=== PATIENT | female | born 1950 | race Two or more races ===

== ENCOUNTER → 2016-12-10 | Outpatient (CLI) | payer OTHER ==
[~2016-12-10] MED LIST: REGADENOSON 0.4 MG/5 ML DISP.SYRIN. IV ONE
--- NOTE | 2016-12-10 14:56 | RAD ---
APPROVED REPORT Test Type: Pharmacological Stress Nurse/Tech: freya mendoza Test Indications: DYSPNEA Cardiac History: NONES STATED, SEE EHR Medications: SEE EHR Medical History: DIABETES, SEE EHR Resting ECG: SR Resting Heart Rate: 67 bpm Resting Blood Pressure: 131/59mmHg Pretest Chest Pain: No chest pain Nurse/Tech Notes LUNG SOUNDS CLEAR, S1S2 WNL. Consent: The procedure was explained to the patient in lay terms. Informed consent was witnessed. Thierry eout was entered into [employer]. History and Stress Test performed by RT Debby (R) (N) Pharm. Details Pharmacologic stress testing was performed using 0.4mg per 5ml of regadenoson given intravenously ove r 7-10 seconds. Stress Symptoms HEADACHE POST EXERCISE Reason for Termination: Infusion complete Max HR: 111 bpm Max Blood Pressure: 163/65mmHg Chest Pain: No. Arrhythmia: No. ST Change: No. INTERPRETATION Stress EKG Conclusion: Baseline EKG showed sinus rhythm. Non diagnostic changes at peak stress. No arrhythmias. Imaging Protocol IMAGE PROTOCOL: Rest Tc-99m/stress Tc-99m 1 day Rest: Stress: Viability: Radiopharm.Tc99m PwrpeagbcHz72b Sestamibi Isip41yEq 35mCi Duration 15min. 10min. Img Date 12/10/2016 12/10/2016 Inj-Img Onvv55mzm. 60min. Rest Admin Site:IV - Left AntecubitalAdministrator:RT Maritza (R)(N) Stress Admin Site: IV - Left AntecubitalAdministrator: RT Maritza (R)(N) STRESS DATA End Diast. Vol.58.0mlAv. Heart Rate83.0bpm End Syst. Vol.14.0mlCO Index BSA0.0L/min Myocardial Mass99.0gEject. Ndklyaxb92.0% Stress Rates Pk. Fill Rate3.06EDV/secLVtime Pk. Fill 161.07msec Pk. Empty Rate5.32ESV/secLVtime Pk. Jxrpd911.89msec 05/20 Pk. Fill0.95EDV/sec Stress Scores Regional WT1.00Summed WT3.00 Regional WM0.00Summed WM1.00 Study quality was good. Left Ventricular size was Normal at Rest and Stress. Lung uptake was Normal. Left Ventricular ejection fraction is 76%. The rest and stress images show normal perfusion, normal contraction and thickening. LV Perf. Quant 17 Seg. SSS0.00 17 Seg. SRS1.00 17 Seg. SDS0.00 Stress Defect Extent (% LAD)0.00Rest Defect Extent (% LAD)0.00Rev. Defect Extent (% LAD)0.00 Stress Defect Extent (% LCX) 0.00Rest Defect Extent (% LCX)0.00Rev. Defect Extent (% LCX)0.00 Stress Defect Extent (% RCA)0.00Rest Defect Extent (% RCA)0.00Rev. Defect Extent (% RCA)0.00 Stress Defect Extent (% FATEMEH)0.00Rest Defect Extent (% FATEMEH)0.00Rev. Defect Extent (% FATEMEH)0.00 Conclusion 1. Regadenoson cardioisotope stress test did not show any evidence of ischemia or infarct. 2. Normal left ventricular systolic function with ejection fraction calculated at 76%. 3. Low risk for cardiac events.
== END | disposition home or self-care (01) ==
LOC: NM 08:15
PROVIDERS: ATTEND Internal Medicine Cardiovascular Disease
DX: I49.5 Sick sinus syndrome (principal); E11.9 Type 2 diabetes mellitus without complications; R06.09 Other forms of dyspnea
CPT/HCPCS: 78452; 93017; 96374; 96375; 96376; A9500; J2785

== ENCOUNTER → 2020-07-05 | Outpatient (CLI) | payer MEDICARE ==
--- NOTE | 2020-07-06 10:25 | CARD ---
MR#: [id number] Date of Study: 07/05/2020 Ordering Physician: CHESTER WINTER, Referring Physician: CHESTER WINTER Tech: Marni Stanton RDCS APPROVED REPORT EXAM: Two-dimensional and M-mode echocardiogram with Doppler and color Doppler. Other Information Quality : Good INDICATION Dyspnea on Exertion RISK FACTORS Diabetes 2D DIMENSIONS RVDd2.7 (2.9-3.5cm)Left Atrium(2D)3.4 (1.6-4.0cm) IVSd1.4 (0.7-1.1cm)Aortic Root(2D)2.5 (2.0-3.7cm) LVDd3.9 (3.9-5.9cm)LVOT Diameter1.9 (1.8-2.4cm) PWd1.2 (0.7-1.1cm)LVDs2.9 (2.5-4.0cm) FS (%) 24.1 %SV31.7 ml LVEF(%)55.0 (>50%) Aortic Valve AoV Peak Jt.137.5cm/sAoV VTI28.4cm AO Peak GR.7.6mmHgLVOT Peak Jt.93.0cm/s AO Mean GR.4mmHgAVA (VMAX)1.87cm2 ADRIANA (VTI)2.00cm2 Mitral Valve MV E Iinhmhll66.2cm/sMV DECEL PXDE424cf MV A Wippibef743.4cm/sE/A Ratio0.8 Pulmonary Vein S1 Usefzksy91.1cm/sD2 Tbkvqnqr64.7cm/s LEFT VENTRICLE The left ventricle is normal size. There is borderline concentric left ventricular hypertrophy. The l eft ventricular systolic function is normal and the ejection fraction is within normal range. The Eje ction Fraction is 55-60%. There is normal LV segmental wall motion. Transmitral Doppler flow pattern is Grade I-abnormal relaxation pattern. RIGHT VENTRICLE The right ventricle is normal size. The right ventricular systolic function is normal. ATRIA The left atrium size is normal. The right atrium size is normal. The interatrial septum is intact wit h no evidence for an atrial septal defect or patent foramen ovale as noted on 2-D or Doppler imaging. AORTIC VALVE The aortic valve is calcified but opens well. Doppler and Color Flow revealed no significant aortic r egurgitation. There is no significant aortic valvular stenosis. MITRAL VALVE The mitral valve is calcified but opens well. Mitral annular calcification is mild. The anterior mitr al valve leaflet is mildly redundant but no evidence of mitral valve prolapse is seen. There is no mi tral valve stenosis. Doppler and Color-flow revealed trace mitral regurgitation. TRICUSPID VALVE The tricuspid valve is normal in structure and function. Doppler and Color Flow revealed no tricuspid valve regurgitation noted. There is no tricuspid valve stenosis. PULMONIC VALVE The pulmonic valve is not well visualized. Doppler and Color Flow revealed no pulmonic valvular regur gitation. There is no pulmonic valvular stenosis. GREAT VESSELS The aortic root is normal in size. The ascending aorta is normal in size. The IVC is normal in size a nd collapses >50% with inspiration. PERICARDIAL EFFUSION There is no evidence of significant pericardial effusion. Critical Notification Critical Value: No <Conclusion> The left ventricle is normal size. The left ventricular systolic function is normal and the ejection fraction is within normal range. The Ejection Fraction is 55-60%. There is borderline concentric left ventricular hypertrophy. Doppler and Color Flow revealed no significant aortic regurgitation. There is no significant aortic valvular stenosis. Doppler and Color-flow revealed trace mitral regurgitation. Doppler and Color Flow revealed no tricuspid valve regurgitation noted. Signed by : Sincere Bonner MD Electronically Approved : 07/06/2020 10:25:10
--- NOTE | 2020-07-06 12:31 | RAD ---
MR#: [id number] Date of Study: 07/05/2020 Ordering Physician: CHESTER WINTER, Referring Physician: MERLIN WILLOUGHBY Tech: RT Maritza (R) (N) APPROVED REPORT Test Type: Pharmacological Stress Nurse/Tech: Brianna Vargas RN Test Indications: Dyspnea on exertion Cardiac History: See EMR. Medications: ASA 81mg, See EMR. Medical History: DM, See EMR. Resting ECG: SR Resting Heart Rate: 86 bpm Resting Blood Pressure: 153/74mmHg Pretest Chest Pain: No chest pain Nurse/Tech Notes Lungs CTA, Heart tones regular. Consent: The procedure was explained to the patient in lay terms. Informed consent was witnessed. Thierry eout was entered into [employer]. History and Stress Test performed by MARKY Hidalgo Pharm. Details Pharmacologic stress testing was performed using 0.4mg per 5ml of regadenoson given intravenously ove r 7-10 seconds. Stress Symptoms No chest pain or symptoms. POST EXERCISE Reason for Termination: Infusion complete Max HR: 119 bpm Max Blood Pressure: 157/81mmHg Blood Pressure response to exercise: Normal blood pressure response during stress. Heart Rate response to exercise: WNL Chest Pain: No. Arrhythmia: No. INTERPRETATION Stress EKG Conclusion: The resting EKG shows a sinus rhythm and nonspecific T wave changes. The stress EKG shows no significant changes from baseline. No EKG evidence of stress-induced ischemia. Imaging Protocol IMAGE PROTOCOL: Rest Tc-99m/stress Tc-99m 1 day Rest: Stress: Viability: Radiopharm.Tc99m VbiuucxiyMh01c Sestamibi Dose10.9mCi 33mCi Duration 13min. 13min. Img Date 07/05/2020 07/05/2020 Inj-Img Zpcy73ciz. 60min. Rest Admin Site:IV - Right AntecubitalAdministrator:RT Maritza (R)(N) Stress Admin Site: IV - Right AntecubitalAdministrator: MARKY Hidalgo STRESS DATA End Diast. Vol.62.0mlLVEDV index BSA35.0ml End Syst. Vol.18.0mlLVESV index BSA10.0ml Myocardial Uwsl491.0gEject. Ksvdktud74.0% Stress Scores Regional WT0.00Summed WT0.00 Regional WM0.00Summed WM2.00 LV Perfusion The stress scans shows no significant defects. The rest scans shows no significant defects. Nuclear imaging shows no reversible ischemia or infarct. Wall Motion Left ventricular systolic function is normal with an ejection fraction of greater than 70%. LV Perf. Quant 17 Seg. SSS0.00 17 Seg. SRS0.00 17 Seg. SDS0.00 Stress Defect Extent (% LAD)0.00Rest Defect Extent (% LAD)0.00Rev. Defect Extent (% LAD)0.00 Stress Defect Extent (% LCX) 0.00Rest Defect Extent (% LCX)0.00Rev. Defect Extent (% LCX)0.00 Stress Defect Extent (% RCA)0.00Rest Defect Extent (% RCA)0.00Rev. Defect Extent (% RCA)0.00 Stress Defect Extent (% FATEMEH)0.00Rest Defect Extent (% FATEMEH)0.00Rev. Defect Extent (% FATEMEH)0.00 Conclusion 1. No EKG evidence of stress-induced ischemia. 2. Nuclear imaging shows no reversible ischemia or infarct. 3. Normal left ventricular systolic function with an ejection fraction of greater than 70%. 4. Low risk Lexiscan nuclear stress test. Signed by : Sincere Bonner MD Electronically Approved : 07/06/2020 12:31:20
== END ==
LOC: ECHO 07:51
PROVIDERS: ATTEND Internal Medicine Cardiovascular Disease
DX: I08.0 Rheumatic disorders of both mitral and aortic valves (principal); E11.9 Type 2 diabetes mellitus without complications
CPT/HCPCS: 78452; 93017; 93306; A9500; J2785